=== PATIENT | male | born 1965 | race Caucasian/White ===

== ENCOUNTER → 2018-10-10 13:19 | Outpatient (CLI) | payer OTHER, SELFPAY ==
--- NOTE | 2018-10-10 13:27 | XR_ITS ---
XR shoulder LT min 2V HISTORY: ITS.REASON: left shoulder pain ORDERING PHYSICIAN: James Meier MD PATIENT AGE: 53 years Comparison: None FINDINGS: There is prominence of the acromioclavicular joint. Calcification is noted within the cortical clavicular region. There are mild osteoarthritic changes of the glenohumeral joint and there is a metallic anchor at the proximal humerus. No fracture or dislocation. No lytic or blastic change. IMPRESSION: Osteoarthritic change with prominence of the acromioclavicular joint space. There may have been a prior distal clavicular osteotomy.
== END ==
PROVIDERS: Visit Provider Orthopaedic Surgery
DX: M25.512 Pain in left shoulder (principal)
CPT/HCPCS: 73030

== ENCOUNTER 2018-10-11 10:06 | Outpatient (RCR) | payer OTHER, SELFPAY | END 2018-10-11 10:15 | disposition home or self-care (01) | LOC: OT 10:06 | PROVIDERS: Visit Provider Orthopaedic Surgery | DX: G56.22 Lesion of ulnar nerve, left upper limb (principal) | CPT/HCPCS: 97763 ==

== ENCOUNTER → 2018-10-27 07:39 | Outpatient (CLI) | payer OTHER, SELFPAY ==
--- NOTE | 2018-10-27 07:42 | MR_ITS ---
MR shoulder LT wo con HISTORY: ITS.REASON: evaluate for rotator cuff tear ORDERING PHYSICIAN: James Meier MD PATIENT AGE: 53 years Comparison: 05/19/2016. TECHNIQUE: Standard multiplanar multiecho sequences are performed without contrast. FINDINGS: Alignment, joint space and signal from the osseous marrow elements are normal except there are a few corticated subchondral cysts along the posterior aspect of the anatomic neck of the proximal humerus. There is minimal glenohumeral joint effusion. The articular cartilage areas appear to be intact. There is a small crescent-shaped focus of fluid signal which appears to be within the anterior aspect of the subdeltoid bursa. The labrum appears intact. On the axial images along the bicipital groove the low signal of the long head of the biceps tendon is not visualized. Within the bicipital groove there is intermediate signal. Also the biceps anchor is not well visualized although this is partially related to the technique. There is some mild thickening and intermediate signal involving the supraspinatus tendon which is otherwise probably intact. There is a punctate focus of fluid type signal along the inferior anterior margin of the infraspinatus muscle, coronal image #5 from series #5. Signal from the muscles appear normal except there is a 10 mm elongated focus of fat signal within the anterior peripheral portion of the supraspinatus muscle. There is widening of the left AC joint which is likely postoperative in nature. IMPRESSION: Supraspinatus tendinosis. Could be subtle small punctate partial tear of the inferior anterior margin of the infraspinatus tendon. Normal low signal of the long head of the biceps tendon and biceps anchor is not visualized. Correlate with history as to any prior injury to the biceps tendon or related to surgery. Minimal subdeltoid bursal effusion could be related to mild bursitis. Degenerative subchondral cyst formation along posterior anatomic neck.
== END ==
PROVIDERS: Visit Provider Orthopaedic Surgery
DX: G89.29 Other chronic pain (principal); M25.512 Pain in left shoulder; Z98.890 Other specified postprocedural states
CPT/HCPCS: 73221

== ENCOUNTER → 2018-11-06 13:23 | Outpatient (POV) | payer OTHER, SELFPAY | PROVIDERS: Visit Provider Specialist | DX: R20.2 Paresthesia of skin (principal); M79.642 Pain in left hand; M79.602 Pain in left arm | CPT/HCPCS: 95886; 95908 ==

== ENCOUNTER → 2019-01-09 11:46 | Outpatient (CLI) | payer OTHER, SELFPAY ==
--- NOTE | 2019-01-09 12:08 | ECG_ITS ---
APPROVED REPORT Exam: Resting ECG HR:58 bpm ECG Measurements Heart Rate 58 AXES MA 224 P 33 QRSd 110 QRS 16 QT 470 T 32 QTc 461 <Conclusion> Sinus bradycardia with 1st degree AV block Otherwise normal ECG Electronically signed by : Emery Pitt, 01/09/2019 18:32:29
--- NOTE | 2019-01-09 12:08 | XR_ITS ---
PROCEDURE: XR CHEST 2V CLINICAL HISTORY: HTN Hypertension, COMPARISON: No exams were available for comparison FINDINGS: The cardiomediastinal silhouette and pulmonary vascularity are within normal limits. The lungs are clear without infiltrates, suspicious nodules, or pleural effusions. No acute bony abnormalities. IMPRESSION: No acute findings. Dictated by: Julius Giang MD 01/09/2019 12:36 Electronically signed by Julius Giang MD in [facility] 01/09/2019 12:36
[2019-01-09 12:09] LABS: Hematocrit 46.7 % (42.0-52.0); Mean Corpuscular HGB Conc 32.1 g/dL (31.8-35.4); Mean Corpuscular Hemoglobin 29.7 pg (27.0-31.2); Mean Corpuscular Volume 92.6 fl (80-94); Red Blood Count 5.04 M/mm3 (4.60-6.20); White Blood Count 5.6 K/mm3 (4.8-10.8)
[2019-01-09 12:10] LABS: Basophils % 0.5 % (0.1-2.0); Eosinophils # 0.1 K/mm3 (0.0-0.4); Eosinophils % 1.9 % (0.1-12.0); Lymphocytes # 1.5 K/mm3 (0.7-4.5); Lymphocytes % 26.1 % (10-50); Mean Platelet Volume 9.2 fl (7.4-10.4); Monocytes # 0.5 K/mm3 (0.1-1.0); Monocytes % 9.6 % (1.7-9.3); Neutrophils # 3.5 K/mm3 (1.8-7.8); Neutrophils % 61.9 % (37.0-80.0); Platelet Count 206 K/mm3 (142-424); Red Cell Distribution Width 13.7 % (11.5-17.5)
[2019-01-09 13:10] LABS: Alanine Aminotransferase 58 U/L (12-78); Albumin Level 3.9 gm/dL (3.4-5.0); Alkaline Phosphatase 83 U/L (46-116); Anion Gap 11.5 mEq/L (5-15); Aspartate Amino Transferase 40 U/L (15-37); Bilirubin,Total 0.9 mg/dL (0.2-1.0); Blood Urea Nitrogen 14 mg/dL (7-18); Calcium 9.2 mg/dL (8.5-10.1); Carbon Dioxide 33 mmol/L (21.0-32.0); Chloride 100 mmol/L (98-107); Creatinine,Serum 1.18 mg/dL (0.70-1.30); Estimated Glomerular Filt Rate 65 ml/min (>60); GFR (African American) 78 ML/MIN (>60); Glucose 200 mg/dL (74-106); Potassium 3.5 mmoL/L (3.5-5.1); Sodium 141 mmol/L (136-145); Total Protein,Serum 7.9 gm/dL (6.4-8.2)
== END ==
PROVIDERS: Visit Provider Orthopaedic Surgery
DX: Z01.818 Encounter for other preprocedural examination (principal); M25.512 Pain in left shoulder; M75.42 Impingement syndrome of left shoulder; M67.912 Unspecified disorder of synovium and tendon, left shoulder; M75.112 Incomplete rotator cuff tear or rupture of left shoulder, not specified as traumatic; G89.29 Other chronic pain
CPT/HCPCS: 36415; 71046; 80053; 83036; 85025; 93005

== ENCOUNTER 2019-02-16 12:50 | Outpatient (RCR) | payer OTHER, SELFPAY ==
--- NOTE | 2019-02-16 13:57 | [facility]H.OTOPEV ---
OT Inpatient Evaluation Rehab OT Outpatient Eval Start: 02/16/19 13:22 Freq: Status: Active Protocol: Document 02/16/19 13:22 TFRY (Rec: 02/16/19 13:54 TFRY [id number]) Electronically Signed By Rin Smith OT 02/16/19 13:22 Outpatient Therapy Subjective History Subjective History This is 53 year old left handed male referred to occupational therapy as patient underwent left shouder SAD with subacromial and subdeltoit bursectomy and bony acromioplasty, glenohumeral joint debridement on 01/22/19. Chief Complaint Pain Symptom Type Ache Symptoms Relieved By Rest/Positioning Symptoms Aggravated By Physical Activity Prior Functional Limitations None Current Functional Limitations Sleeping,Recreation Activity Symptom Description Activity Dependent Level of pain today (0-10) 2 Pain scale - at its best (0-10) 0 Pain scale - at its worst (0-10) 8 Shoulder/Elbow Eval Shoulder Objective Measurements Palpation Tenderness tenderness shoulder exam standard left Shoulder ROM Left Shoulder Abduction Active Range of WFL Motion (degrees) Shoulder Flexion Active Range of Motion WFL (degrees) Query Text: Shoulder External Rotation Active Range WFL of Motion (degrees) Shoulder Internal Rotation Active Range WFL of Motion (degrees) Shoulder Extension Active Range of WFL Motion (degrees) full ROM shoulder exam standard left Shoulder MMT Shoulder Abduction Strength Grade 4- Good- Shoulder Extension Strength Grade 4- Good- Shoulder Flexion Strength Grade 4- Good- Shoulder Horizontal Abduction Strength 4- Good- Grade Shoulder Horizontal Adduction Strength 4- Good- Grade Shoulder Internal Rotation Strength 3+ Fair+ Grade Shoulder Strength Patient Testing Sitting Position Elbow Objective Measurements OT Outpatient Assessment Impairments Problems/Impairments Impaired Strength,Impaired Lifting,Impaired Recreational Activities,Subjective C/O Pain Prognosis Rehab Potential Good Clinical Impression Consistent with Diagnosis Yes Short Term Goals Number of Weeks 3 Increase Strength Yes: Left shoulder strength 4/ 5 throughout Restore Ability to Lift Objects to Waist Yes: Lift 30 lbs with left Level upper extremity Decrease Subject
== END 2019-02-16 12:55 | disposition home or self-care (01) ==
LOC: OT 12:50
PROVIDERS: Visit Provider Orthopaedic Surgery
DX: M75.112 Incomplete rotator cuff tear or rupture of left shoulder, not specified as traumatic (principal); M25.512 Pain in left shoulder; M75.42 Impingement syndrome of left shoulder; M67.912 Unspecified disorder of synovium and tendon, left shoulder
CPT/HCPCS: 97014; 97110; 97165; G0283